=== PATIENT | male | born 1975 | race Caucasian/White ===

== ENCOUNTER → 2020-07-20 08:02 | Outpatient (CLI) | payer BC, SELFPAY ==
--- NOTE | ~2020-07-20 | XR_ITS ---
XR chest 2V DATE: 07/20/2020 08:34 INDICATION: Environmental exposure TECHNIQUE: 2 views COMPARISON: None FINDINGS: Normal heart size. No hilar or mediastinal enlargement. No pulmonary infiltrate or consolid ation, pleural effusion or pulmonary vascular congestion or pneumothorax. Included skeletal structure s are unremarkable. IMPRESSION: No active cardiopulmonary disease Reviewed, dictated and finalized at location A.
--- NOTE | ~2020-07-20 | XR_ITS ---
XR_CERV2-3V_CR DATE: 07/20/2020 08:34 INDICATION: Chronic neck pain. No injury. TECHNIQUE: AP, open-mouth, odontoid, lateral and swimmer views COMPARISON: None FINDINGS: There is straightening of the cervical spine. C1 and C2 are normally aligned and the odontoid process is intact. No fracture or dislocation or locked facet or prevertebral soft tissue swelling. There is prominent anterior spurring at C4-5, C5-6 and C6-7. The cervical interspaces are relatively preserved. IMPRESSION: Straightening of the cervical spine Prominent anterior spurring at the mid and lower cervical spine Reviewed, dictated and finalized at [facility]. Reviewed, dictated and finalized at location A.
== END ==
PROVIDERS: PCP Family Medicine; Visit Provider Family Medicine
DX: G89.29 Other chronic pain (principal); M54.2 Cervicalgia; Z77.22 Contact with and (suspected) exposure to environmental tobacco smoke (acute) (chronic); M53.82 Other specified dorsopathies, cervical region; M46.02 Spinal enthesopathy, cervical region
CPT/HCPCS: 71046; 72040

== ENCOUNTER 2022-03-14 08:47 | Outpatient (CLI) | payer BC, SELFPAY ==
[2022-03-14 20:08] LABS: Hematocrit 47.8 % (42.0-52.0); Hemoglobin 15.2 g/dL (14.0-18.0); Mean Corpuscular HGB Conc 31.8 g/dl (32-36); Mean Corpuscular Hemoglobin 29.2 pg (26-34); Mean Corpuscular Volume 91.9 fl (80-100); Platelet Count Result 248 k/mm3 (150-375); Red Cell Distribution Width 13.2 % (11.5-14.5); White Blood Count 7.4 K/mm3 (4.5-10.0)
[2022-03-14 20:13] LABS: Alanine Aminotransferase 42 U/L (6-50); Albumin Level 4.1 g/dL (3.5-5.1); Alkaline Phosphatase 63 U/L (38-126); Anion Gap 7 mmol/L (8-16); Aspartate Amino Transferase 27 U/L (17-59); Bilirubin,Total 0.5 mg/dL (0.2-1.3); Blood Urea Nitrogen 11 mg/dL (9-20); Calcium 8.9 mg/dL (8.4-10.2); Carbon Dioxide 26 mmol/L (22-30); Chloride 104 mmol/L (98-107); Cholesterol 260 mg/dL (0-200); Estimated Glomerular Filt Rate > 60; Glucose 106 mg/dL (65-110); HDL Direct 39 mg/dL; Potassium 4.2 mmol/L (3.4-5.0); Sodium 137 mmol/L (137-145); Triglycerides 245 mg/dL (<150)
[2022-03-14 20:24] LABS: LDL Cholesterol Direct 156 mg/dL
== END 2022-03-14 08:48 | disposition home or self-care (01) ==
PROVIDERS: PCP Family Medicine; Visit Provider Family Medicine
DX: Z00.00 Encounter for general adult medical examination without abnormal findings (principal)
CPT/HCPCS: 36415; 80053; 80061; 85027

== ENCOUNTER 2022-11-16 08:34 | Outpatient (CLI) | payer BC, SELFPAY ==
--- NOTE | ~2022-11-16 | XR_ITS ---
EXAMINATION: XR abdomen obstructive series DATE: 11/16/2022 08:47 INDICATION: Diarrhea. TECHNIQUE: Supine and upright views of the abdomen. FINDINGS: No prior studies for comparison. The visualized lung parenchyma is normal.. There is a nonobstructive bowel gas pattern. There is mode rate retained fecal material in the colon. There is no free air. IMPRESSION: 1. No acute abdominal abnormality. Reviewed, dictated and finalized at location L. [employer]
== END 2022-11-16 08:35 | disposition home or self-care (01) ==
LOC: ANHBWCLAB 08:35 → ANHBWCIMG 08:37
PROVIDERS: PCP Family Medicine; Visit Provider Family Medicine
DX: R19.5 Other fecal abnormalities (principal)
CPT/HCPCS: 74019

== ENCOUNTER 2023-03-16 00:25 | Day surgery (SDC) | payer BC, SELFPAY ==
[2023-03-06 16:07] VITALS: BMI 37.3
--- NOTE | 2023-03-15 13:19 | P.PNAN_ITS ---
Anes - Initial Pre Proc Eval Procedure: Operation Date: 03/16/23 14:00 Proposed Procedures p Colonoscopy - Corby Wu MD Date/Time: 03/15/23 13:19 Surgeon: Corby Wu MD Pre Op Diagnosis: other fecal abnormalities Patient Data Age: 47 Gender: M Height: 1.78 m Weight: 117.8 kg Allergies Allergy/AdvReac Type Severity Reaction Status Date / Time No Known Allergies Allergy Verified 03/16/23 12:52 Home Medications Medication Instructions Recorded Confirmed Type amlodipine 5 mg tablet 5 mg PO DAILY #90 tabs 02/13/23 03/06/23 Rx sildenafil 50 mg tablet (Viagra) 50 mg PO DAILY PRN sexual activity 02/13/23 03/06/23 Rx #20 tabs Patient hx anesthesia problems: none Family hx anesthesia problems: none Results Review: All pre-operative results and documents have been reviewed as part of the pre- operative evaluation. [facility] Past Medical History Medical History (Updated 03/15/23 @ 13:20 by Corey Adamson DO) Arthritis Change in bowel movement Hyperlipidemia Surgical History Surgical History History of placement of ear tubes Social History Social History (Updated 03/16/23 @ 13:03 by Corey Adamson DO) Smoking status: Never smoker Tobacco type: smokeless tobacco Smokeless tobacco user: chewing tobacco Second hand tobacco smoke exposure: Yes Additional smoking assessment comments: nicotine packets Alcohol intake: current Drinks per week: 40 Alcohol use details: 8-10 beers/day Substance use: never Substance use type: does not use Lack of Transportation: No Lack of Food: Never True Current Housing: I Have Housing Concerned About Future Housing: No Difficulty Paying Gas/Electric Bills: No Difficulty Paying for Meds: No Education: Associate Degree Difficulty w/ Childcare or Family Care: No Living arrangements: with family Gender identity (if verbalized by the patient): Male Spiritual care concerns: No Anes - Eval Final PreProcedure Day of Procedure 03/15/23 13:19 Patient weight: obese Heart: regular rate and rhythm Lungs: clear to auscultation Airway: Mallampati scale class II Neurological: alert and oriented Last oral intake: >/= 8 hours ASA classification: III Emergent: no Anesthetic plan: proceed Anesthesia type and monitoring: general GIVS and standard monitoring Results Review: All pre-operative results and documents have been reviewed as part of the pre- operative evaluation. Informed Consent: The patient's anesthetic plan and its attendant risks and benefits were discussed with the patient/family/POA. Questions were solicited and answers provided to the satisfaction of the patient/family/POA.
[2023-03-16 12:53] VITALS: BP 139/89; PULSE 77; RESP 18; TEMP 36.5; O2SAT 98
[2023-03-16] MEDS: LACTATED RINGERS 1,000 ML 150 ML IV CONT (13:06)
--- NOTE | 2023-03-16 13:17 | WPDHPUPDATE1 ---
History and Physical Update Update Date/Time: 03/16/23 13:17 History and Physical has been reviewed, including an updated exam of the patient. There are NO changes in the patient's condition. Risks, benefits, and alternatives have been discussed and questions answered. Patient agrees to proceed with procedure.
[2023-03-16 13:43] VITALS: BP 104/67; PULSE 82; RESP 11; O2SAT 100
[2023-03-16 13:53] VITALS: BP 101/72; PULSE 77; RESP 25; O2SAT 98
[2023-03-16 14:03] VITALS: BP 111/86; PULSE 67; RESP 18; O2SAT 99
== END 2023-03-16 14:13 | disposition home or self-care (01) ==
PROVIDERS: PCP Family Medicine; Visit Provider Internal Medicine Gastroenterology
PROC: 0DJD8ZZ Inspection of Lower Intestinal Tract, Via Natural or Artificial Opening Endoscopic (ICD-10-PCS; CPT 45378; principal; 2023-03-16 14:00)
DX: Z12.11 Encounter for screening for malignant neoplasm of colon (principal); D12.3 Benign neoplasm of transverse colon; R19.4 Change in bowel habit; K64.8 Other hemorrhoids; F17.220 Nicotine dependence, chewing tobacco, uncomplicated; E66.9 Obesity, unspecified; Z68.36 Body mass index [BMI] 36.0-36.9, adult
CPT/HCPCS: 45385; 45380; 88305; J2001; J2704; J7120